=== PATIENT | female | born 1975 | race Two or more races ===

== ENCOUNTER 2018-01-05 09:31 | Emergency (ER) | payer MEDICAID, OTHER ==
[~2018-01-05] VITALS: Ht 167.6 cm; Wt 55.8 kg
[2018-01-05 09:41] VITALS: BP 127/61
[2018-01-05] MEDS ORDERED: Morphine Sulfate 4mg/ml Inj IVP ONE (09:45)
--- NOTE | 2018-01-05 09:59 | Emergency Room Report ---
History of Present Illness General Chief Complaint: Abdominal Pain Source: Patient Present Illness HPI 42-year-old female presents ED for evaluation. Patient complaining of right- sided abdominal pain starting 3 days ago. Getting worse. Sharp, 8 out of 10, nonradiating. Notes nausea, denies vomiting. Denies flank pain. Denies dysuria or hematuria. Denies chest pain. Denies fevers or chills. No other aggravating relieving factors. Denies any other associated symptoms Allergies: Coded Allergies: No Known Allergies (Unverified , 01/05/18) Patient History Past Medical History: none Past Surgical History: none Pertinent Family History: none Social History: Denies: smoking, alcohol use, drug use Last Menstrual Period: 1 week Now: No Immunizations: UTD Reviewed Nursing Documentation: PMH: Agreed; PSxH: Agreed Nursing Documentation-PMH Past Medical History: No Stated History Review of Systems All Other Systems: negative except mentioned in HPI Physical Exam Vital Signs Date Time Temp Pulse Resp B/P (MAP) Pulse Ox O2 Delivery O2 Flow Rate FiO2 01/05/18 09:32 97.7 72 18 115/68 100 Room Air 97.7 Sp02 EP Interpretation: reviewed, normal General Appearance: no apparent distress, alert, GCS 15, non-toxic Head: normocephalic, atraumatic Eyes: bilateral eye normal inspection, bilateral eye PERRL ENT: hearing grossly normal, normal pharynx, no angioedema, normal voice Neck: full range of motion, supple/symm/no masses Respiratory: chest non-tender, lungs clear, normal breath sounds, speaking full sentences Cardiovascular #1: regular rate, rhythm, no edema Cardiovascular #2: 2+ carotid (R), 2+ carotid (L), 2+ radial (R), 2+ radial (L) , 2+ dorsalis pedis (R), 2+ dorsalis pedis (L) Gastrointestinal: normal bowel sounds, soft, non-distended, no guarding, no rebound, tenderness - RUQ Rectal: deferred Genitourinary: normal inspection, CVA tenderness (R) Musculoskeletal: back normal, gait/station normal, normal range of motion, non- tender Neurologic: alert, oriented x3, responsive, motor strength/tone normal, sensory intact, speech normal Psychiatric: judgement/insight normal, memory normal, mood/affect normal, no suicidal/homicidal ideation Reflexes: 3+ bicep (R), 3+ bicep (L), 3+ tricep (R), 3+ tricep (L), 3+ knee (R) , 3+ knee (L) Skin: normal color, no rash, warm/dry, well hydrated Lymphatic: no adenopathy Medical Decision Making Diagnostic Impression: Primary Impression: Abdominal pain Qualified Codes: R10.11 - Right upper quadrant pain ER Course Hospital Course 42-year-old F presents to ED with RUQ abdominal pain Differential diagnosis includes-appendicitis, cholecystitis, small bowel obstruction, gastritis, Clinical course Patient placed on stretcher. After initial history and physical I ordered labs , IV fluids, pain medications and US Labs - no leukocytosis, electrolytes ok, LFTs normal, UA unremarkable ABD US - no gallstones, CBD WNL, negative murphys Discussed findings with patient. Given negative workup I believe patient be safely discharged to home pending close outpatient follow-up I feel this is a highly complex case requiring extensive working including EKG/ Rhythm strip, Xray/CT/US, Blood/urine lab work, repeat exams while in ED, and administration of strong opiates/narcotics for pain control, admission to hospital or close patient follow up. Diagnosis - abdominal pain Stable and discharged to home with Rx Tramadol. Followup with PMD. Return to ED if symptoms recur or worsen Labs Test 01/05/18 09:50 White Blood Count 4.4 K/UL (4.8-10.8) Red Blood Count 4.70 M/UL (4.20-5.40) Hemoglobin 14.4 G/DL (12.0-16.0) Hematocrit 42.1 % (37.0-47.0) Mean Corpuscular Volume 90 FL (80-99) Mean Corpuscular Hemoglobin 30.6 PG (27.0-31.0) Mean Corpuscular Hemoglobin Concent 34.1 G/DL (32.0-36.0) Red Cell Distribution Width 11.7 % (11.6-14.8) Platelet Count 193 K/UL (150-450) Mean Platelet Volume 10.5 FL (6.5-10.1) Neutrophils (%) (Auto) 41.3 % (45.0-75.0) Lymphocytes (%) (Auto) 46.2 % (20.0-45.0) Monocytes (%) (Auto) 6.3 % (1.0-10.0) Eosinophils (%) (Auto) 4.5 % (0.0-3.0) Basophils (%) (Auto) 1.8 % (0.0-2.0) Urine Color Pale yellow Urine Appearance Clear Urine pH 7 (4.5-8.0) Urine Specific [place] 1.010 (1.005-1.035) Urine Protein Negative (NEGATIVE) Urine Glucose (UA) Negative (NEGATIVE) Urine Ketones Negative (NEGATIVE) Urine Occult Blood 2+ (NEGATIVE) Urine Nitrite Negative (NEGATIVE) Urine Bilirubin Negative (NEGATIVE) Urine Urobilinogen Normal MG/DL (0.0-1.0) Urine Leukocyte Esterase Negative (NEGATIVE) Urine RBC 2-4 /HPF (0 - 2) Urine WBC 0-2 /HPF (0 - 2) Urine Squamous Epithelial Cells Few /LPF (NONE/OCC) Urine Bacteria Few /HPF (NONE) Urine HCG, Qualitative Negative (NEGATIVE) Sodium Level 138 MMOL/L (136-145) Potassium Level 3.9 MMOL/L (3.5-5.1) Chloride Level 103 MMOL/L (98-107) Carbon Dioxide Level 29 MMOL/L (21-32) Anion Gap 6 mmol/L (5-15) Blood Urea Nitrogen 14 mg/dL (7-18) Creatinine 0.5 MG/DL (0.55-1.30) Estimat Glomerular Filtration Rate > 60 mL/min (>60) Glucose Level 92 MG/DL (74-106) Calcium Level 8.8 MG/DL (8.5-10.1) Total Bilirubin 0.3 MG/DL (0.2-1.0) Aspartate Amino Transf (AST/SGOT) 9 U/L (15-37) Alanine Aminotransferase (ALT/SGPT) 19 U/L (12-78) Alkaline Phosphatase 54 U/L (46-116) Total Protein 7.1 G/DL (6.4-8.2) Albumin 3.5 G/DL (3.4-5.0) Globulin 3.6 g/dL Albumin/Globulin Ratio 1.0 (1.0-2.7) Lipase 108 U/L (73-393) CT/MRI/US Diagnostic Results CT/MRI/US Diagnostic Results : Imaging Test Ordered: ABD US Impression No gallstones noted. Common bile duct normal. Negative Leach sign Last Vital Signs Date Time Temp Pulse Resp B/P (MAP) Pulse Ox O2 Delivery O2 Flow Rate FiO2 01/05/18 09:32 97.7 72 18 115/68 100 Room Air 97.7 Status: improved Disposition: HOME, SELF-CARE Condition: Stable Scripts Tramadol Hcl* (ULTRAM*) 50 Mg Tablet 50 MG ORAL Q6H PRN for For Pain, #30 TAB 0 Refills Prov: MACARIO ANSARI M.D. 01/05/18 MACARIO ANSARI M.D. Jan 05, 2018 09:59
[2018-01-05 10:15] LABS: BASOPHILS % (AUTO) 1.8 % (0.0-2.0); EOSINOPHILS % (AUTO) 4.5 % (0.0-3.0); HEMATOCRIT 42.1 % (37.0-47.0); HEMOGLOBIN 14.4 G/DL (12.0-16.0); LYMPHOCYTES % (AUTO) 46.2 % (20.0-45.0); MEAN CORPUSCULAR VOLUME 90 FL (80-99); MONOCYTES % (AUTO) 6.3 % (1.0-10.0); NEUTROPHILS % (AUTO) 41.3 % (45.0-75.0); PLATELET COUNT 193 K/UL (150-450); RED CELL DISTRIBUTION WIDTH 11.7 % (11.6-14.8); WHITE BLOOD COUNT 4.4 K/UL (4.8-10.8)
[2018-01-05 10:16] LABS: APPEARANCE,URINE CLEAR; BILIRUBIN, URINE NEGATIVE (NEGATIVE); COLOR,URINE PALE YELLOW; GLUCOSE, URINE (UA) NEGATIVE (NEGATIVE); KETONES,URINE NEGATIVE (NEGATIVE); LEUKOCYTE ESTERASE ,URINE NEGATIVE (NEGATIVE); NITRITE,URINE NEGATIVE (NEGATIVE); PH,URINE 7 (4.5-8.0); PROTEIN,URINE NEGATIVE (NEGATIVE); UROBILINOGEN,URINE NORMAL MG/DL (0.0-1.0)
[2018-01-05 10:25] LABS: ANION GAP 6 mmol/L (5-15); BLOOD UREA NITROGEN 14 mg/dL (7-18); CALCIUM 8.8 MG/DL (8.5-10.1); CARBON DIOXIDE 29 MMOL/L (21-32); CHLORIDE 103 MMOL/L (98-107); CREATININE 0.5 MG/DL (0.55-1.30); POTASSIUM 3.9 MMOL/L (3.5-5.1); SODIUM 138 MMOL/L (136-145)
[2018-01-05 10:29] LABS: ALANINE AMINOTRANSFERASE 19 U/L (12-78); ALBUMIN 3.5 G/DL (3.4-5.0); ALKALINE PHOSPHATASE 54 U/L (46-116); ASPARTATE AMINO TRANSFERASE 9 U/L (15-37); BILIRUBIN,TOTAL 0.3 MG/DL (0.2-1.0)
[2018-01-05] MEDS ORDERED: TRAMADOL HCL50 MG ORAL (10:51)
[2018-01-05 10:55] VITALS: BP 127/61
--- NOTE | 2018-01-05 11:45 | Diagnostic Imaging Report ---
Indication: Abdominal pain, right upper quadrant plane, right flank pain Technique: Rahman-scale and duplex images of the upper abdomen were obtained Comparison: none Findings: Gallbladder is unremarkable, without stones, wall thickening, nor pericholecystic fluid. Sonographic Leach's sign is negative. Common bile duct measures 3 mm in diameter. No intrahepatic biliary ductal dilatation. Liver demonstrates normal echogenicity, no focal abnormality. Portal vein and hepatic veins are patent. Pancreas is unremarkable. Spleen is unremarkable. Left kidney measures 10.6 cm in length. Right kidney measures 10 cm length. Both kidneys demonstrate normal echogenicity. There is no hydronephrosis. Right kidney demonstrates 2 small parapelvic cysts. Questionable echogenic foci are seen in the renal sinus . Non-aneurysmal abdominal aorta . Impression: Negative for gallstones or dilated ducts Incidental finding too small right renal parapelvic cyst Very questionable echogenic foci in the right renal sinus, most likely artifacts
== END 2018-01-05 10:55 | disposition home or self-care (01) ==
LOC: EMR 09:48
DX: R10.13 Epigastric pain (principal)
CPT/HCPCS: 36415; 76700; 80053; 81003; 81025; 83690; 85025; 96374; 96375; 99284; J2270; J2405

== ENCOUNTER 2018-05-20 17:00 | Emergency (ER) | payer MEDICAID ==
[~2018-05-20] VITALS: Ht 167.6 cm; Wt 60.3 kg
[~2018-05-20 17:00] MED LIST: TRAMADOL HCL50 MG ORAL
[2018-05-20 18:29] VITALS: BP 128/69
--- NOTE | 2018-05-20 18:46 | Emergency Room Report ---
History of Present Illness General Chief Complaint: Upper Extremity Injury Source: Patient (Makenzie Lu) Present Illness HPI 43-year-old female presents to the emergency department complaining of onset of 4/10 in severity burning sensation and numbness to the left wrist area as well as pain to the left index finger. Patient states that she noticed a swollen lump on the back of her left wrist for approximately 3-4 months. Patient states that her primary care doctor was considering to have it biopsied. Patient states that she's been sleeping on her left arm and she believes she popped the lump that was in her wrist and ever since she's been having burning sensation and numbness localized to that area. Patient states that this happened 2 days ago and has not resolved. She denies trauma or fall otherwise she denies erythema, fevers, chills, or history of carpal tunnel. Patient reports the paresthesia is located only to the dorsum of the left wrist does not affect the fingers. Denies numbness tingling or loss of sensation or gross motor movements of the extremities, incontinence of bowel or bladder. Denies CP , Palpitations, LOC, AMS, dizziness, Changes in Vision, weakness or a sudden severe headache. (Makenzie Lu) Allergies: Coded Allergies: No Known Allergies (Unverified , 01/05/18) Patient History Past Medical History: see triage record Past Surgical History: none Pertinent Family History: none Last Menstrual Period: 05/09/18 Now: No : 2 Para: 1 Reviewed Nursing Documentation: PMH: Agreed; PSxH: Agreed (Makenzie Lu) Nursing Documentation-PMH Past Medical History: No Stated History (Makenzie Lu) Review of Systems All Other Systems: negative except mentioned in HPI (Makenzie Lu) Physical Exam Vital Signs Date Time Temp Pulse Resp B/P (MAP) Pulse Ox O2 Delivery O2 Flow Rate FiO2 05/20/18 17:31 98.0 74 18 130/69 99 Room Air 98.1 Sp02 EP Interpretation: reviewed, normal General Appearance: no apparent distress, alert, GCS 15, non-toxic Head: normocephalic, atraumatic ENT: hearing grossly normal, normal voice Neck: full range of motion Respiratory: lungs clear, normal breath sounds, speaking full sentences Cardiovascular #1: regular rate, rhythm, normal capillary refill Musculoskeletal: back normal, gait/station normal, normal range of motion, other - Mass is freely mobile nodule that is approximately 1 cm in size. no erythema or increased temperature to palpation. NVI , tender - dorsal left wrist , lump noted. no appreciable ttp to the left index finger, FROM, no obvious deformities Neurologic: alert, oriented x3, responsive, motor strength/tone normal, sensory intact, speech normal, grossly normal Psychiatric: judgement/insight normal Skin: normal color, no rash, warm/dry, well hydrated (Makenzie Lu) Medical Decision Making PA Attestation Dr. Keith is my supervising Physician whom patient management has been discussed with. (Makenzie Lu) Diagnostic Impression: Primary Impression: Ganglion cyst of dorsum of left wrist ER Course 43-year-old female presents to the emergency department complaining of onset of 4/10 in severity burning sensation and numbness to the left wrist area as well as pain to the left index finger. Patient states that she noticed a swollen lump on the back of her left wrist for approximately 3-4 months. Patient states that her primary care doctor was considering to have it biopsied. Patient states that she's been sleeping on her left arm and she believes she popped the lump that was in her wrist and ever since she's been having burning sensation and numbness localized to that area. Patient states that this happened 2 days ago and has not resolved. She denies trauma or fall otherwise she denies erythema, fevers, chills, or history of carpal tunnel. Patient reports the paresthesia is located only to the dorsum of the left wrist does not affect the fingers. Denies numbness tingling or loss of sensation or gross motor movements of the extremities, incontinence of bowel or bladder. Denies CP , Palpitations, LOC, AMS, dizziness, Changes in Vision, weakness or a sudden severe headache. Pt. is requesting imaging. Ddx considered but are not limited to Fracture, dislocation, contusion, abscess , Sprain/Strain/Spasm, Ganglion cyst Vital signs: are WNL, pt. is afebrile H&PE are most consistent with ganglion cyst no neurovascular compromise, no evidence of infection or lesions. - Mass is freely mobile nodule that is approximately 1 cm in size. no erythema or increased temperature to palpation. NVI ORDERS: --X-ray left wrist : negative ED INTERVENTIONS: -Dae wrap applied by obstetrics tech. Pt. remains neurovascularly intact. -I do not identify an emergent condition at this time. With current presentation , pt. is stable for close outpatient follow up and conservative treatment. D/ w pt. to return promptly to ED with worsening or new symptoms.- Pt. verbalizes ' understanding and agreement with proposed treatment plan.proposed treatment plan. DISCHARGE: At this time pt. is stable for d/c to home. Will provide printed patient care instructions, and any necessary prescriptions. Care plan and follow up instructions have been discussed with the patient prior to discharge. (Makenzie Lu) Other X-Ray Diagnostic Results Other X-Ray Diagnostic Results : X-Ray ordered: Left hand # of Views/Limited Vs Complete: 3 View Indication: Pain EP Interpretation: Yes PA Xray: Interpretation reviewed, by supervising MD, and agrees with findings. Interpretation: no dislocation, no soft tissue swelling, no fractures Impression: No acute disease Electronically Signed by: Makenzie Lu PA-C (Makenzie Lu) Other X-Ray Diagnostic Results : Electronically Signed by: Taylor documentation reviewed by me and is accurate, Zi Keith MD. (Zi Keith M.D.) Last Vital Signs Date Time Temp Pulse Resp B/P (MAP) Pulse Ox O2 Delivery O2 Flow Rate FiO2 05/20/18 18:29 98.1 84 18 128/69 99 Room Air 98.1 (Makenzie Lu) Disposition: HOME, SELF-CARE Condition: Stable Scripts Ibuprofen* (MOTRIN*) 600 Mg Tablet 600 MG ORAL THREE TIMES A DAY, #30 TAB 0 Refills Prov: Makenzie Lu 05/20/18 Referrals: NOT CHOSEN IPA/,REFERRING (PCP) Patient Instructions: Ganglion Cyst Additional Instructions: Take medications as directed. Follow up with a Primary Care Provider in 3-5 days, even if your symptoms have resolved. --Please review list of primary care clinics, if you do not already have a primary care provider Return sooner to ED if new symptoms occur, or current symptoms become worse. - Please note that this Emergency Department Report was dictated using [employer] transcription technology software, occasionally this can lead to erroneous entry secondary to interpretation by the dictation equipment. Makenzie Lu May 20, 2018 18:46 Zi Keith M.D. May 22, 2018 04:58
[2018-05-20] MEDS ORDERED: IBUPROFEN600 MG ORAL (18:48)
[2018-05-20] MEDS ORDERED: TIZANIDINE HCL4 MG ORAL (18:48)
[2018-05-20 19:12] VITALS: BP 128/69
--- NOTE | 2018-05-21 10:39 | Diagnostic Imaging Report ---
Indication: Reason For Exam: PAIN Technique: 3 views left hand Comparison: None Findings: There is narrowing of the second through fifth distal interphalangeal joints. No definite osseous erosions. No acute fractures. No dislocations. Impression: No acute bony trauma Distal interphalangeal joint space narrowing may indicate arthropathy. Correlate with clinical history
== END 2018-05-20 19:14 | disposition home or self-care (01) ==
LOC: EMR 17:59
DX: M67.432 Ganglion, left wrist (principal)
CPT/HCPCS: 99283

== ENCOUNTER 2019-06-24 08:23 | Emergency (ER) | payer MEDICAID ==
[~2019-06-24] VITALS: Ht 167.6 cm; Wt 58.1 kg
[~2019-06-24 08:23] MED LIST changes: +COLACE100 MG ORAL; +DICYCLOMINE HCL10 MG PO; +IBUPROFEN600 MG ORAL; +NKM; +TIZANIDINE HCL4 MG ORAL
--- NOTE | 2019-06-24 08:30 | NUR ---
ED Nurse Note: pt arrives from home with c/o abd pain and n/v starting last night. pt does relate that she visited [facility] 3 weeks ago and did have diarrhea there. pt tolerates iv start and lab draw well. urine sent. no dyspnea. denies blood in stool or vomit.
--- NOTE | 2019-06-24 08:53 | Emergency Room Report ---
History of Present Illness General Chief Complaint: Abdominal Pain Source: Patient Present Illness HPI Disclaimer: Please note that this report is being documented using [employer] technology. This can lead to erroneous entry secondary to incorrect interpretation by the dictating instrument. HPI: 44-year-old female presents for evaluation of abdominal pain she has had bilateral lower abdominal cramping pain, abdominal distention, bloating, increased gas and loose stools for the past 2 weeks. Last night, the pain acutely intensified and she was unable to sleep. She reports nausea without vomiting. She notes foul-smelling urine but denies dysuria or hematuria. Denies flank pain but notes some lower back pain. LMP was 5 days ago. Denies any vaginal discharge or vaginal bleeding. Denies any melena or hematochezia. Denies chest pain, shortness of breath or fever. Has not seen a privacy attorney ever. Questionable history of diverticulitis. PMH: Denies PSH: Denies Allergies: Denies Social Hx: Denies tobacco, drug or alcohol use Allergies: Coded Allergies: No Known Allergies (Unverified , 01/05/18) Patient History Last Menstrual Period: 06/19/18 Nursing Documentation-PMH Past Medical History: No Stated History Review of Systems All Other Systems: negative except mentioned in HPI Physical Exam Vital Signs Date Time Temp Pulse Resp B/P (MAP) Pulse Ox O2 Delivery O2 Flow Rate FiO2 06/24/19 08:29 98.1 66 18 115/66 (82) 100 Room Air General: Awake and alert, no acute distress HEENT: NC/AT. EOMI. Cardiovascular: RRR. S1 and S2 normal. No murmur appreciated Resp: Normal work of breathing. No cough, wheezing or crackles appreciated Abdomen: Abdomen is soft, nondistended. Tenderness palpation particularly in the left lower quadrant, suprapubic region. The right lower quadrant is somewhat tender with no rebound. The upper quadrants are nontender. No masses are appreciated. No guarding. Skin: Intact. No abrasions, laceration or rash over the exposed skin MSK: Normal tone and bulk. Moving all extremities. No obvious deformity. Neuro: Awake and alert. Mentating appropriately. Medical Decision Making Diagnostic Impression: Primary Impression: Enteritis Additional Impressions: Hypodense mass of liver Renal cyst Abdominal pain ER Course 44-year-old female presents for evaluation of abdominal pain. Differential includes but is not limited to gastroenteritis, bowel obstruction, ectopic , urinary tract infection, pyelonephritis, tubo-ovarian abscess, PID, diverticulitis, constipation. Will obtain labs, provide IV fluids, antiemetics and pain medication and send the patient for CT scan of the abdomen. Laboratory Tests Test 06/24/19 08:57 White Blood Count 5.6 K/UL (4.8-10.8) Red Blood Count 4.88 M/UL (4.20-5.40) Hemoglobin 15.1 G/DL (12.0-16.0) Hematocrit 44.3 % (37.0-47.0) Mean Corpuscular Volume 91 FL (80-99) Mean Corpuscular Hemoglobin 31.0 PG (27.0-31.0) Mean Corpuscular Hemoglobin Concent 34.2 G/DL (32.0-36.0) Red Cell Distribution Width 12.0 % (11.6-14.8) Platelet Count 190 K/UL (150-450) Mean Platelet Volume 9.8 FL (6.5-10.1) Neutrophils (%) (Auto) 40.4 % (45.0-75.0) L Lymphocytes (%) (Auto) 41.0 % (20.0-45.0) Monocytes (%) (Auto) 6.2 % (1.0-10.0) Eosinophils (%) (Auto) 11.0 % (0.0-3.0) H Basophils (%) (Auto) 1.4 % (0.0-2.0) Urine Color Yellow Urine Appearance Clear Urine pH 6 (4.5-8.0) Urine Specific [place] 1.020 (1.005-1.035) Urine Protein Negative (NEGATIVE) Urine Glucose (UA) Negative (NEGATIVE) Urine Ketones Negative (NEGATIVE) Urine Blood 2+ (NEGATIVE) H Urine Nitrite Negative (NEGATIVE) Urine Bilirubin Negative (NEGATIVE) Urine Urobilinogen Normal MG/DL (0.0-1.0) Urine Leukocyte Esterase Negative (NEGATIVE) Urine RBC 15-20 /HPF (0 - 2) H Urine WBC 0-2 /HPF (0 - 2) Urine Squamous Epithelial Cells Moderate /LPF (NONE/OCC) H Urine Bacteria Few /HPF (NONE) Urine Mucus Few /LPF (NONE/OCC) H Urine HCG, Qualitative Negative (NEGATIVE) Sodium Level 138 MMOL/L (136-145) Potassium Level 3.7 MMOL/L (3.5-5.1) Chloride Level 103 MMOL/L (98-107) Carbon Dioxide Level 30 MMOL/L (21-32) Anion Gap 5 mmol/L (5-15) Blood Urea Nitrogen 14 mg/dL (7-18) Creatinine 0.6 MG/DL (0.55-1.30) Estimate Glomerular Filtration Rate > 60 mL/min (>60) Glucose Level 83 MG/DL (74-106) Calcium Level 9.4 MG/DL (8.5-10.1) Total Bilirubin 0.4 MG/DL (0.2-1.0) Aspartate Amino Transferase (AST) 14 U/L (15-37) L Alanine Aminotransferase (ALT) 23 U/L (12-78) Alkaline Phosphatase 61 U/L (46-116) Total Protein 7.8 G/DL (6.4-8.2) Albumin 3.9 G/DL (3.4-5.0) Globulin 3.9 g/dL Albumin/Globulin Ratio 1.0 (1.0-2.7) Lipase 143 U/L (73-393) Last Vital Signs Date Time Temp Pulse Resp B/P (MAP) Pulse Ox O2 Delivery O2 Flow Rate FiO2 06/24/19 08:29 98.1 66 18 115/66 (82) 100 Room Air Reevaluation Impression CT scan shows evidence of mild enteritis but otherwise a normal appendix and no evidence of intra-abdominal abscess or bowel obstruction. There is an incidental hypodensity in the liver as well as complex cysts in the kidneys requiring outpatient ultrasound reevaluation but there are no acute findings. Labs have returned largely within normal limits. No significant white count, normal renal function, normal liver function tests, no evidence of acute urinary tract infection. There were some RBCs in the urine for which the patient will be followed up by her PMD in addition to her follow-up for the renal cysts which may be related. We discussed reasons to return to the emergency department as well as providing symptomatic treatment with Zofran to treat this enteritis which is likely viral and should resolve in the next few days. Discussed reasons to return to the emergency department as well as need for follow-up. She understands and agrees with this treatment plan will be discharged home Disposition: HOME, SELF-CARE Condition: Improved Scripts Ondansetron Odt* (ZOFRAN ODT*) 4 Mg Tab.rapdis 4 MG BC EVERY 6 HOURS PRN for Nausea & Vomiting, #20 TAB 0 Refills Prov: Gaurang Hinkle MD 06/24/19 Gaurang Hinkle MD Jun 24, 2019 08:53
[2019-06-24] MEDS ORDERED: Isovue-300 100ml vial INJ PRN (09:00)
[2019-06-24] MEDS ORDERED: Morphine Sulfate 4mg/ml Inj (IV USE ONLY) IVP ONE (09:00)
[2019-06-24 09:20] LABS: APPEARANCE,URINE CLEAR; BILIRUBIN, URINE NEGATIVE (NEGATIVE); GLUCOSE, URINE (UA) NEGATIVE (NEGATIVE); KETONES,URINE NEGATIVE (NEGATIVE); LEUKOCYTE ESTERASE ,URINE NEGATIVE (NEGATIVE); NITRITE,URINE NEGATIVE (NEGATIVE); PH,URINE 6 (4.5-8.0); PROTEIN,URINE NEGATIVE (NEGATIVE); UROBILINOGEN,URINE NORMAL MG/DL (0.0-1.0)
[2019-06-24 09:23] LABS: COLOR,URINE YELLOW
[2019-06-24 09:25] LABS: ANION GAP 5 mmol/L (5-15); BLOOD UREA NITROGEN 14 mg/dL (7-18); CALCIUM 9.4 MG/DL (8.5-10.1); CARBON DIOXIDE 30 MMOL/L (21-32); CHLORIDE 103 MMOL/L (98-107); CREATININE 0.6 MG/DL (0.55-1.30); POTASSIUM 3.7 MMOL/L (3.5-5.1); SODIUM 138 MMOL/L (136-145)
[2019-06-24 09:27] LABS: BASOPHILS % (AUTO) 1.4 % (0.0-2.0); HEMATOCRIT 44.3 % (37.0-47.0); HEMOGLOBIN 15.1 G/DL (12.0-16.0); MEAN CORPUSCULAR VOLUME 91 FL (80-99); MONOCYTES % (AUTO) 6.2 % (1.0-10.0); NEUTROPHILS % (AUTO) 40.4 % (45.0-75.0); PLATELET COUNT 190 K/UL (150-450); RED BLOOD COUNT 4.88 M/UL (4.20-5.40); WHITE BLOOD COUNT 5.6 K/UL (4.8-10.8)
[2019-06-24 09:29] LABS: ALANINE AMINOTRANSFERASE 23 U/L (12-78); ALBUMIN 3.9 G/DL (3.4-5.0); ALKALINE PHOSPHATASE 61 U/L (46-116); ASPARTATE AMINO TRANSFERASE 14 U/L (15-37); BILIRUBIN,TOTAL 0.4 MG/DL (0.2-1.0)
--- NOTE | 2019-06-24 09:41 | NUR ---
ED Nurse Note: pt to ct scan. states pain decreased. no n/v
--- NOTE | 2019-06-24 10:27 | NUR ---
ED Nurse Note: pt returned from ct scan. states pain has decreased. awaits results. ivf infusing
[2019-06-24 10:28] VITALS: BP 109/74
--- NOTE | 2019-06-24 11:03 | Diagnostic Imaging Report ---
Indication: Abdominal pain Technique: Continuous helical transaxial imaging of the abdomen and pelvis was obtained from the lung bases to the pubic symphysis during intravenous contrast administration. Coronal 2-D reformats were also obtained. Study obtained in a Siemens sensation [address] Automatic Exposure Control was utilized. Total Dose length Product (DLP): 599.[address] Dose Index Volume (CTDIvol): 11.66 mGy Comparison: None Findings: The lung bases are clear. There is a tiny hypodensity measuring about 5 mm just anterior to the IVC in the liver (image 17/3) this is nonspecific. There is a suggestion of parapelvic cysts within the kidneys bilaterally. There is no hydronephrosis. The gallbladder, pancreas and spleen are unremarkable. The appendix is air-filled and essentially normal. Uterus is present. Urinary bladder is unremarkable. There is no free fluid. Bowel gas pattern is nonobstructive, but there are a few prominent loops of small bowel that are fluid-filled within the lower abdomen and pelvis. Suspected mild enteritis. There is no adrenal mass. Gallbladder is unremarkable. IMPRESSION: Suspected mild enteritis. Normal appendix. 5 mm incidental hypodensity in the central liver, nonspecific. This could be a small hemangioma or complex cyst and may warrant nonemergent ultrasound follow-up. Parapelvic renal cysts suspected. The CT scanner at [facility] is accredited by the [employer] and the scans are performed using dose optimization techniques as appropriate to a performed exam including Automatic Exposure control.
[2019-06-24] MEDS ORDERED: ONDANSETRON ODT4 MG BC (11:31)
--- NOTE | 2019-06-24 12:18 | NUR ---
ED Nurse Note: PT LAYING PEACEFULLY IN BED IN NAD. AOX4. PRESCRIPTION AND DISCHARGE PAPERWORK EXPLAINED TO PT. PT VERBALIZES UNDERSTANDING AND ALL QUESTIONS ANSWERED. PRESCRIPTION AND DISCHARGE PAPERWORK GIVEN TO PT AND ID WRISTBAND REMOVED. PT WALKED OUT OF ER WITH STEADY GAIT AND ALL BELONGINGS.
[2019-06-24 12:19] VITALS: BP 112/78
== END 2019-06-24 12:26 | disposition home or self-care (01) ==
LOC: EMR 08:49
DX: K52.9 Noninfective gastroenteritis and colitis, unspecified (principal); N28.1 Cyst of kidney, acquired; R16.0 Hepatomegaly, not elsewhere classified; R10.30 Lower abdominal pain, unspecified
CPT/HCPCS: 36415; 74177; 80053; 81003; 81025; 83690; 85025; 96361; 96374; 96375; J2270; J2405; Q9967; Z7502; 99284